=== PATIENT | female | born 1975 | race Caucasian/White ===

== ENCOUNTER → 2017-02-12 15:50 | Outpatient (CLI) | payer MEDICAID ==
[2016-10-22 08:30] VITALS: BMI 43.9
[~2017-02-12 15:50] MED LIST: ADIPEX-P37.5 M1 PO; AMBIEN10 MG PO; CYCLOBENZAPRINE10 MG PO; HYDROCODONE-APA1 TAB PO; LINZESS145 MCG PO; LYRICA75 MG PO; MOBIC7.5 MG PO; PERCOCET 10/3251 TA1 PO; TOPAMAX25 MG PO
== END | disposition home or self-care (01) ==
LOC: D.MAMMO 08:15
DX: Z12.31 Encounter for screening mammogram for malignant neoplasm of breast (principal)

== ENCOUNTER → 2017-03-19 16:47 | Outpatient (CLI) | payer MEDICAID ==
[2016-10-22 08:30] VITALS: BMI 43.9
== END | disposition home or self-care (01) ==
LOC: D.MAMMO 03-18 14:30 → D.US 08:00 → D.MAMMO 08:30
DX: R92.8 Other abnormal and inconclusive findings on diagnostic imaging of breast (principal)

== ENCOUNTER → 2017-05-18 09:52 | Outpatient (CLI) | payer BC ==
[2016-10-22 08:30] VITALS: BMI 43.9
--- NOTE | 2017-05-18 13:56 | NUR ---
Nutrition education for pre/post op bariatric surgery: S: Pt reports she lost 130# in 3 years using Adipex, working out and changing her eating habits. Pt states she was able to keep the weight off for ~6 years until her ; she eventually gained all the weight back. Pt is starting to work out again and is trying to get her eating habits back under good control. O: 41 year old female Ht: 5'7" Wt: 280# Highest wt: 293# Lowest wt: 173# BMI: 43.9 PMH: Gallbladder disease, OA of left knee, chronic back pain A: Reviewed pre/post of bariatric diet phases. Reviewed liquids between meals; 3 ounce meal size; 1/2 cup stomach size; no straws, no carbonated drinks; protein needs; protein supplements; pouch stretching; no sweets, fried foods, alcohol; daily supplements. Pt with good understanding of information presented. Pt with a realistic and attainable goal wt of < 200#. Pt reports getting healthy and feeling better are her main goals. RDN feels pt has realistic expectations for weight loss and is willing to make the necessary dietary changes needed to be successful with long-term weight loss. P: Provided pt with printed diet information and RDN name and phone number. RDN will be available if needed. Thank you for the consult.
== END ==
LOC: D.FANS 09:52
DX: Z01.818 Encounter for other preprocedural examination (principal)

== ENCOUNTER → 2017-10-12 18:05 | Outpatient (CLI) | payer MEDICAID ==
[2016-10-22 08:30] VITALS: BMI 43.9
== END | disposition home or self-care (01) ==
LOC: D.MAMMO 13:00
DX: R92.8 Other abnormal and inconclusive findings on diagnostic imaging of breast (principal)

== ENCOUNTER → 2018-04-13 17:30 | Outpatient (CLI) | payer BC ==
[2016-10-22 08:30] VITALS: BMI 43.9
== END | disposition home or self-care (01) ==
LOC: D.MAMMO 09:00
DX: R92.8 Other abnormal and inconclusive findings on diagnostic imaging of breast (principal)

== ENCOUNTER → 2018-11-03 20:04 | Outpatient (CLI) | payer MEDICAID ==
[2016-10-22 08:30] VITALS: BMI 43.9
== END | disposition home or self-care (01) ==
LOC: D.MAMMO 10:00
DX: R92.8 Other abnormal and inconclusive findings on diagnostic imaging of breast (principal)

== ENCOUNTER 2019-09-05 08:00 | Outpatient (CLI) | payer OTHER ==
[2016-10-22 08:30] VITALS: BMI 43.9
== END 2019-09-05 23:59 | disposition home or self-care (01) ==
LOC: D.MAMMO 08:00
PROVIDERS: ATTEND Nurse Practitioner Women's Health
DX: R92.8 Other abnormal and inconclusive findings on diagnostic imaging of breast (principal)

== ENCOUNTER 2021-01-08 15:45 | Outpatient (CLI) | payer OTHER ==
[2016-10-22 08:30] VITALS: BMI 43.9
== END 2021-01-09 23:59 | disposition home or self-care (01) ==
LOC: D.MAMMO 15:45
PROVIDERS: ATTEND Family Medicine
DX: Z12.31 Encounter for screening mammogram for malignant neoplasm of breast (principal)